=== PATIENT | male | born 1995 | race Caucasian/White ===

== ENCOUNTER 2023-10-22 16:57 | Emergency (ER) | payer BC ==
[2023-10-22 17:08] VITALS: BP 116/59; PULSE 62; RESP 18; TEMP 97.5; BMI 28.3
[2023-10-22 19:36] LABS: BASO % 0.8 % (0-2.0); EOS % 2.8 % (0-4.5); HEMATOCRIT 41.8 % (35.4-49); HEMOGLOBIN 14.8 GM/dL (11.7-16.9); LYMPH % 38.1 % (8-40); MCH 32.8 pg (25.7-33.7); MCHC 35.4 g/dl (32.0-35.9); MEAN CELL VOLUME 92.8 fl (80-96); MEAN PLT VOLUME 8.3 fl (7.5-11.1); MONO % 9.9 % (3.8-10.2); NEUT % 48.4 % (42.8-82.8); PLATELET COUNT 250 10^3/uL (134-434); RBC 4.51 M/mm3 (4.00-5.60); RDW 12.7 % (11.9-15.9); WHITE BLOOD COUNT 4.6 K/mm3 (4.0-10.0)
[2023-10-22 19:41] LABS: INR 1.03 (0.83-1.09)
[2023-10-22 19:44] LABS: ACTIVATED PTT 30.1 SECONDS (25.2-36.5)
[2023-10-22 19:59] LABS: POTASSIUM 4.2 mmol/L (3.5-5.1)
[2023-10-22 20:01] LABS: CALCIUM 9.3 mg/dL (8.5-10.1)
[2023-10-22 20:02] LABS: BLOOD UREA NITROGEN 14.5 mg/dL (7-18)
[2023-10-22 20:06] LABS: BILIRUBIN,TOTAL 0.3 mg/dL (0.2-1); TOT PROT 7.3 g/dl (6.4-8.2)
== END 2023-10-22 22:53 | disposition home or self-care (01) ==
LOC: JER 16:57
DX: K62.5 Hemorrhage of anus and rectum (principal); R10.30 Lower abdominal pain, unspecified
CPT/HCPCS: 36415; 74177-TC; 80053; 82272; 85025; 85610; 85730; 86850; 86900; 86901; 99285-25; Q9967